=== PATIENT | female | born 1975 | race American Indian/Alaskan Native ===

== ENCOUNTER 2019-08-28 03:00 | Emergency (ER) | payer OTHER ==
[2019-08-28 03:07] VITALS: BP 151/98
[2019-08-28] MEDS ORDERED: ONDANSETRON 4 MG ODT TAB PO ONE (03:08)
[2019-08-28] MEDS ORDERED: ONDANSETRON 4 MG ODT TAB ONE (03:10)
[2019-08-28 04:36] LABS: Basophils # (Auto) 0.2 K/mm3 (0.0-0.1); Basophils % (Auto) 1.2 % (0.0-1.8); Eosinophils # (Auto) 0.9 K/mm3 (0.0-0.4); Eosinophils % (Auto) 6.3 % (0.0-4.3); Hematocrit 35.9 % (30.3-42.9); Hemoglobin 11.7 gm/dl (10.1-14.3); Lymphocytes # (Auto) 1.8 K/mm3 (1.2-5.4); Lymphocytes % (Auto) 13.2 % (13.4-35.0); Mean Corpuscular HGB Conc 33 % (30-34); Mean Corpuscular Volume 83 fl (79-97); Monocytes # (Auto) 0.9 K/mm3 (0.0-0.8); Monocytes % (Auto) 6.8 % (0.0-7.3); Platelet Count 334 K/mm3 (140-440); Red Blood Count 4.33 M/mm3 (3.65-5.03); Red Cell Distribution Width 14.1 % (13.2-15.2)
[2019-08-28 04:49] LABS: Alanine Aminotransferase 14 units/L (7-56); Albumin 4.2 g/dL (3.9-5); BUN/Creatinine Ratio 19; Blood Urea Nitrogen 13 mg/dL (7-17); Calcium 9.1 mg/dL (8.4-10.2); Hemolysis Index 8
[2019-08-28 08:16] LABS: Bilirubin,Urine NEG (Negative); Blood,Urine NEG (Negative); Color,Urine Yellow (Yellow); Mucus,Urine FEW /HPF; Protein,Urine <15 mg/dL mg/dL (Negative); Urobilinogen,Urine < 2.0 mg/dL (<2.0); WBC,Urine < 1.0 /HPF (0.0-6.0)
[2019-08-28] MEDS ORDERED: ONDANSETRON 4 MG/2 ML INJ IV ONE (09:07)
[2019-08-28] MEDS ORDERED: MORPHINE 4 MG/1 ML INJ IV ONE (09:07)
--- NOTE | 2019-08-28 09:18 | Emergency Department Report ---
ED Abdominal Pain HPI - General Chief Complaint: Abdominal Pain Stated Complaint: ABD PAIN Time Seen by Provider: 08/28/19 09:03 Source: patient Mode of arrival: Ambulatory Limitations: No Limitations - History of Present Illness Initial Comments: Patient is 43 years old female with no significant past medical history. Patient presented to the ER complaining of abdominal pain mainly to the lower abdomen with no radiation. Patient stated that pain started 3 days ago associated with nausea and vomiting. Patient stated that she is not sure if she is having diarrhea or not because she is taking MiraLAX. Patient denies any fever or chills. MD Complaint: abdominal pain -: days(s) Location: LLQ, RLQ, suprapubic Radiation: none Migration to: no migration Severity scale (0 -10): 6 - Related Data Allergies Allergy/AdvReac Type Severity Reaction Status Date / Time No Known Allergies Allergy Verified 08/28/19 03:10 ED Review of Systems ROS: Stated complaint: ABD PAIN Other details as noted in HPI Comment: All other systems reviewed and negative Constitutional: denies: chills, fever Respiratory: denies: cough, shortness of breath, SOB with exertion Cardiovascular: denies: chest pain, palpitations Gastrointestinal: abdominal pain, nausea, vomiting, diarrhea. denies: constipation, hematemesis, melena, hematochezia Musculoskeletal: denies: back pain Neurological: denies: headache, weakness ED Past Medical Hx - Past Medical History Previous Medical History?: No - Surgical History Past Surgical History?: No - Social History Smoking Status: Never Smoker ED Physical Exam - General Limitations: No Limitations General appearance: alert, in no apparent distress - Head Head exam: Present: atraumatic, normocephalic, normal inspection - Eye Eye exam: Present: normal appearance, PERRL - ENT ENT exam: Present: normal exam, normal orophraynx, mucous membranes moist - Neck Neck exam: Present: normal inspection. Absent: tenderness, meningismus - Respiratory Respiratory exam: Present: normal lung sounds bilaterally. Absent: respiratory distress - Cardiovascular Cardiovascular Exam: Present: regular rate, normal rhythm, normal heart sounds - GI/Abdominal GI/Abdominal exam: Present: soft, normal bowel sounds. Absent: distended, tenderness, guarding, rebound, rigid, organomegaly, mass, bruit, pulsatile mass, hernia - Extremities Exam Extremities exam: Present: normal inspection, full ROM, normal capillary refill. Absent: pedal edema, calf tenderness - Back Exam Back exam: Present: normal inspection, full ROM. Absent: CVA tenderness (R), CVA tenderness (L) - Neurological Exam Neurological exam: Present: alert, oriented X3, CN II-XII intact, normal gait, reflexes normal. Absent: motor sensory deficit - Psychiatric Psychiatric exam: Present: normal mood - Skin Skin exam: Present: warm, intact, normal color ED Course Vital Signs 08/28/19 03:05 Temperature 98.1 F Pulse Rate 77 Respiratory 16 Rate Blood Pressure 151/98 O2 Sat by Pulse 99 Oximetry ED Medical Decision Making - Lab Data Result diagrams: 08/28/19 03:59 08/28/19 03:59 - Radiology Data Radiology results: report reviewed - Medical Decision Making Patient is 43 years old female with no significant past medical history. Patient presented to the ER complaining of abdominal pain mainly to the lower abdomen with no radiation. Patient stated that pain started 3 days ago associated with nausea and vomiting. Patient stated that she is not sure if she is having diarrhea or not because she is taking MiraLAX. Patient denies any fever or chills. Patient received morphine, Zofran and Protonix. Patient stated that she is feeling much better. Labs reviewed and is unremarkable except for elevated white blood cells of [address] a [address] abdomen and pelvis with IV contrast showed no evidence of bowel obstruction or any other pathology except for constipation. Patient given prescription for lactulose and Colace and advised to follow-up with her primary care physician in the next 2 to 3 days and to return to the ER if she develop any new symptoms. Critical care attestation.: If time is entered above; I have spent that time in minutes in the direct care of this critically ill patient, excluding procedure time. ED Disposition Clinical Impression: Abdominal pain, Nausea and vomiting, Constipation Disposition: - TO HOME OR SELFCARE Is pt being admited?: No Condition: Stable Instructions: Abdominal Pain (ED), Constipation (ED), High Fiber Diet (ED) Referrals: PRIMARY CARE,MD [Primary Care Provider] - 3-5 Days
[2019-08-28 09:19] LABS: HCG Qualitative,Urine Negative (Negative)
--- NOTE | 2019-08-28 10:40 | Cat Scan Report ---
CT abdomen pelvis w con INDICATION: abdominal pain. TECHNIQUE: All CT scans at this location are performed using the following dose modulation technique: Automated exposure control. Helical slices were obtained through the abdomen and pelvis. Intravenous contrast i s administered. COMPARISON: None available. FINDINGS: Abdomen: Lung bases are clear. Liver, spleen, pancreas, adrenal glands, and kidneys show no acute abn ormality. The aorta is normal in diameter. There is a moderate to large amount stool noted throughout the colon. Pelvis: Uterus is enlarged (12 cm in length) and somewhat irregular likely representing fibroids. There is no obstruction or inflammation. There are no abnormal fluid collections. The appendix is not seen On review of bone windows, no acute osseous abnormalities are seen. IMPRESSION: 1. There is no obstruction, inflammation, or free air. There is possible constipation. Signer Name: Esteban Burdick MD Signed: 08/28/2019 10:35 AM Workstation Name: [id number]
== END 2019-08-28 11:41 | disposition home or self-care (01) ==
LOC: ED 03:00
DX: K59.00 Constipation, unspecified (principal); R11.2 Nausea with vomiting, unspecified; R10.30 Lower abdominal pain, unspecified
CPT/HCPCS: 36415; 74177; 80053; 81001; 81025; 85025; 99284; J2405; Q9967; J2270; Q0162